=== PATIENT | female | born 1955 | race Two or more races ===

== ENCOUNTER 2019-06-10 12:53 | Emergency (ER) | payer OTHER ==
[~2019-06-10] VITALS: Ht 167.6 cm; Wt 86.0 kg
[2019-06-10] MEDS ORDERED: PARO20TA24 PO (13:12)
[2019-06-10] MEDS ORDERED: SULF500T60 PO (13:12)
[2019-06-10] MEDS ORDERED: FOLI1 PO (13:12)
[2019-06-10] MEDS ORDERED: OMEP20 PO (13:12)
[2019-06-10] MEDS ORDERED: METH2.5 PO (13:12)
[2019-06-10] MEDS ORDERED: SIMV-260 PO (13:12)
[2019-06-10] MEDS ORDERED: FLUORESCEIN SODIUM 1 MG STRIP OU ONE (14:30)
[2019-06-10] MEDS ORDERED: DiphenhydrAMINE HCL 25 MG CAPSULE PO ONE (14:45)
[2019-06-10] MEDS ORDERED: ValACYclovir HCL 500 MG TABLET PO ONE (15:00)
[2019-06-10 16:01] VITALS: BP 136/78
== END 2019-06-10 16:04 | disposition home or self-care (01) ==
LOC: EMS 12:59
DX: B02.31 Zoster conjunctivitis (principal); F32.9 Major depressive disorder, single episode, unspecified; E78.00 Pure hypercholesterolemia, unspecified; K21.9 Gastro-esophageal reflux disease without esophagitis; F17.210 Nicotine dependence, cigarettes, uncomplicated; Z79.899 Other long term (current) drug therapy; Z98.51 Tubal ligation status